=== PATIENT | female | born 1930 | race Caucasian/White ===

== ENCOUNTER → 2018-06-21 | Outpatient (CLI) | payer OTHER ==
[~2018-06-21] VITALS: Ht 167.6 cm; Wt 64.9 kg
[~2018-06-21] MED LIST: ACETAMINOPHEN-1 EAC1 PO; ASPIR 8181 MG PO; CALCIUM 600 +1 EAC1 PO; CIPRO250 M1 PO; CIPROFLOXACIN500 M1 PO; CITRATE OF MAG296 ML PO; CRESTOR10 MG PO; DITROPAN XL10 M1 PO; HYDROCHLOROTHIA25 M1 PO; INDERAL LA80 MG PO; LEVOTHROID; LEVOTHYROXINE0.05 MG PO; LIPITOR20 MG PO; LISINOPRIL5 MG PO; MEDROL DOSPAK21 TAB PO; MEDROLDOSEPACK PO; NORCO 5-325 TA1 EACH PO; OXYBUTYNIN 5 MG5 M2 PO; OXYBUTYNIN ER 55 MG PO; PROAIR HFA8.5 GM IH; SENOKOT-S1 TA1 PO; SLEEP AID; TOPROL XL25 MG PO; UROCIT K OR; VENTOLIN HFA 1818 GM INH
[2018-06-21 13:15] VITALS: BP 112/65
== END ==
LOC: PAIN 06:33
DX: M54.5 Low back pain (principal); G89.29 Other chronic pain; I10 Essential (primary) hypertension; F17.210 Nicotine dependence, cigarettes, uncomplicated; Z79.899 Other long term (current) drug therapy

== ENCOUNTER → 2018-06-28 | Outpatient (CLI) | payer OTHER ==
[~2018-06-28] VITALS: Ht 167.6 cm; Wt 76.0 kg
--- NOTE | ~2018-06-28 | HPC ---
[facility] [place] [address] PAIN MANAGEMENT CONSULTATION Name: JEY DUBOSE Room #: REG [facility] David#: [id number] Admission: 06/28/18 Attend Phys: Estrada Olson MD Discharge: Date of : [birth year] Report #: [id number] THIS REPORT FOR: //name// CC: Max Olson DATE OF SERVICE: 06/28/2018 CHIEF COMPLAINT: Pain in the low back area. HISTORY OF PRESENT ILLNESS: The patient is an 88-year-old female who has been referred to the pain clinic for evaluation of low back and leg pain. The patient states that she is having pain, which is quite problematic. Sitting or standing up straight could be problematic. She is not sure of anything that makes it much better. Describes the pain as rhythmic, shooting and rates it as a 7/10. She stated that in May, she had a bout of diarrhea and went to the Emergency Room with colitis. She has been having pain across her low back, which is chronic. She has been diagnosed with colitis and had gastrointestinal workup. She has had pain similar to this in the past. She has had some problems with her back and has undergone facet joint injections. She also has lumbar spondylosis. She notes that the pain can be worse when she is bending, walking, doing housework and is generally worse in the morning. She has undergone chiropractic treatment in the past. ALLERGIES: No known drug allergies. CURRENT MEDICATIONS: Calcium 600 plus vitamin D, Crestor 10 mg, levothyroxine 0.05 mg, lisinopril 5 mg, metoprolol 25 mg, oxybutynin 10 mg, ProAir 90 mcg 2 puffs, senna p.r.n. Tylenol No. 3. PAST MEDICAL HISTORY: Lung disease, thyroid disease, colon problems, stroke and back pain. PAST SURGICAL HISTORY: Hysterectomy, abdominal aortic aneurysm repair, cholecystectomy. SOCIAL HISTORY: She is retired, has not worked in 20 years, smoked in the past. 1/4 pack of cigarettes for the past 69 years. REVIEW OF SYSTEMS: Questionnaire, recent weight change, decreased appetite, fever, night sweats, wears glasses, blurred vision, glaucoma, cataracts, hearing loss, ringing in the ears, sore throat, shortness of breath, loss of appetite, bowel movement problems, abdominal pain, varicose veins, lightheadedness, tremors, memory loss, confusion, depression, insomnia, thyroid disease, slow to heal. [facility] [address] [place] [address] PAIN MANAGEMENT CONSULTATION Name: JEY DUBOSE Room #: REG CLI [facility]#: [id number] Admission: 06/28/18 Attend Phys: Estrada Olson MD Discharge: Date of : [birth year] Report #: [id number] LABORATORY DATA: No new laboratory values are available at the time of our interview. PAIN CLINIC ASSESSMENT: 1. History of osteoarthritis. The patient has arthritic changes in her low back area. 2. Height 5 feet 6 inches, weight 167 pounds, BMI is 27. 3. Vital Signs: Blood pressure 120/59, pulse is 57, respiratory rate is 18, room air saturation 99%. Pain intensity 7/10. 4. Fall risk. The patient has not fallen in the last 3 months. Does need some assistance with walking. 5. Blood thinner. The patient is not on a blood thinning medication. 6. History of hypertension. The patient is being treated for hypertension. 7. Opiate therapy greater than 6 weeks. The patient is not on an opioid medication at this juncture. 7. Risk assessment tool. 8. Functional assessment tool, low for use of opioid medication. 9. Recreational drug use. The patient denies recreational drugs. 10. Tobacco use. The patient smokes 1/4 pack of cigarettes per day, has smoked for the last 6-7 years. 11. Alcohol: The patient drinks alcoholic beverages on occasion about 2 beverages per week. 12. Fall risk. The patient fell on 05/29 in the bathroom. The patient has some pain in the lower portion of her back. PHYSICAL EXAMINATION: GENERAL: The patient is a well-developed white female, appears of stated age. She is alert and oriented x 3. Affect is appropriate. Speech is fluent. HEENT: Normocephalic, atraumatic. Extraocular eye muscles intact. NECK without JVD or adenopathy. HEART: Regular rate. ABDOMEN: Nontender. EXTREMITIES: Upper extremity muscle strength is judged to be 4/5 for the major muscle groups. Lower extremity muscle strength is judged to be 4/5 for the major muscle groups. The patient has pain and discomfort in the low back area. The patient states that she fell in the bathroom. RECOMMENDATIONS: We discussed treatment options with the patient. The patient is having pain and discomfort in the low back area. Notes some pain that radiates down her legs. We will proceed with an epidural steroid injection in the L4-L5 distribution. Risks and benefits of the procedure were discussed. Possible complications of the procedure, which could include but are not limited to infection, worsening of pain, no improvement in pain, spinal headache, infection. The patient tolerated the procedure well. Anterior, posterior and lateral viewing was used. A 0.25% bupivacaine in the midline in a right paramedian approach was taken. A 17-gauge Tuohy with loss of resistance [facility] [place] [address] PAIN MANAGEMENT CONSULTATION Name: JEY DUBOSE Room #: REG [facility] Milli.#: [id number] Admission: 06/28/18 Attend Phys: Estrada Olson MD Discharge: Date of : [birth year] Report #: [id number] technique was used to gain access to the epidural space. There was no CSF, heme or paresthesia. Total of 80 mg Depo-Medrol, 40 mg triamcinolone and 2 mL of 0.25% bupivacaine was used. Total of 8 seconds fluoroscopy time was used. The patient's pain was 5 at the time of discharge. She will follow up in the future as needed. We would like to thank you for letting us participate in her care. We hope she continues to improve. By: [id number] Estrada Olson MD /nt
[2018-06-28 13:08] VITALS: BP 120/59
== END | disposition home or self-care (01) ==
LOC: PAIN 07:05
DX: M54.5 Low back pain (principal); I10 Essential (primary) hypertension; K52.9 Noninfective gastroenteritis and colitis, unspecified; M47.896 Other spondylosis, lumbar region; J98.4 Other disorders of lung; E07.9 Disorder of thyroid, unspecified; I25.2 Old myocardial infarction; F17.210 Nicotine dependence, cigarettes, uncomplicated; M19.90 Unspecified osteoarthritis, unspecified site; Z79.899 Other long term (current) drug therapy; Z90.710 Acquired absence of both cervix and uterus; Z98.890 Other specified postprocedural states; Z90.49 Acquired absence of other specified parts of digestive tract